=== PATIENT | female | born 2000 | race Caucasian/White ===

== ENCOUNTER 2021-01-29 12:01 | Inpatient (IN) ==
[2021-01-29] MEDS ORDERED: Buffered Lidocaine 1% SYRIN 1 ml INTRADERM ONE (12:53)
[2021-01-29] MEDS ORDERED: Lactated Ringers 1000 ml BAG 1,000 ML IV ONE ×2 (12:53→17:09)
[2021-01-29] MEDS ORDERED: Lactated Ringers 1000 ml BAG 1,000 ML IV SCH ×3 (13:00→22:00)
[2021-01-29] MEDS ORDERED: Oxytocin in LR 20 UNITS/1,000 ML BAG IVPB SCH ×2 (13:00→22:00)
[2021-01-29 13:37] LABS: ABS Eosinophils 0.1 10^3/ul (0-0.6); ABS Lymphocytes 1.9 10^3/ul (1.0-4.8); ABS Neutrophils 7.2 10^3/ul (1.5-7.7); Eosinophil % 0.5 %; Hematocrit 38 % (35-47); Lymphocyte % 18.8 %; Mean Corpuscular HGB Conc 34 g/dL (31-36); Mean Corpuscular Hemoglobin 29 pg (27-31); Mean Corpuscular Volume 86 fL (80-97); Platelet Count 217 10^3/uL (150-450); Red Blood Count 4.45 10^6 /uL (3.70-4.87); Red Cell Distribution Width 14 % (10-15); White Blood Count 10.1 10^3/uL (3.5-10.8)
[2021-01-29 14:04] LABS: Urine Benzodiazepine Screen None Detected (None Detect); Urine Cannabinoids Screen None Detected (None Detect); Urine Opiates Screen None Detected (None Detect)
[2021-01-29] MEDS ORDERED: OBEPIDURAL 250 ML EPIDURAL ONE (16:23)
[2021-01-29] MEDS ORDERED: EPHEDrine (Pressors) 50 MG/ML VIAL IV PUSH PRN ×2 (17:09)
[2021-01-29] MEDS ORDERED: Sodium Citrate/Citric Acid LIQ 15 ML UDC PO PRN (17:09)
[2021-01-29] MEDS ORDERED: Phenylephrine 40 mcg/mL 10mL (400mcg) SYRINGE IV PUSH PRN ×2 (17:09)
[2021-01-29] MEDS ORDERED: OBEPIDURAL 250 ML EPIDURAL SCH (18:00)
[2021-01-29 18:07] LABS: Urine Appearance Clear; Urine Bilirubin Negative (Negative); Urine Blood Negative (Negative); Urine Color Straw; Urine Glucose Negative (Negative); Urine Ketones Negative (Negative); Urine Nitrite Negative (Negative); Urine Protein Negative (Negative); Urine Specific Gravity 1.008 (1.002-1.030); Urine Urobilinogen Negative (Negative)
[2021-01-29] MEDS ORDERED: Ondansetron 4 mg VIAL 2 MG/ML 2 ml VIAL IV PRN (19:16)
[2021-01-29] MEDS ORDERED: Witch Hazel PAD JAR TOPICAL PRN (21:31)
[2021-01-29] MEDS ORDERED: Dibucaine 1% OINT 28.35 GM TUBE PR PRN (21:31)
[2021-01-29] MEDS ORDERED: Metoclopramide 5 MG/ML VIAL (10 mg) IV ONE (22:47)
[2021-01-29] MEDS ORDERED: Ammonia Inhalant 1 EA AMP ONE (23:27)
[2021-01-30] MEDS ORDERED: Lidocaine 1% VIAL 10 MG/ML VIAL ONE (01:06)
[2021-01-30 08:07] LABS: ABS Basophils 0.1 10^3/ul (0-0.2); ABS Lymphocytes 2.2 10^3/ul (1.0-4.8); ABS Monocytes 1.5 10^3/ul (0-0.8); ABS Neutrophils 10.4 10^3/ul (1.5-7.7); Eosinophil % 0.3 %; Hematocrit 35 % (35-47); Hemoglobin 11.9 g/dL (12.0-16.0); Lymphocyte % 15.2 %; Mean Corpuscular HGB Conc 34 g/dL (31-36); Mean Corpuscular Hemoglobin 29 pg (27-31); Mean Corpuscular Volume 85 fL (80-97); Mean Platelet Volume 8.4 fL (7.4-10.4); Platelet Count 180 10^3/uL (150-450); Red Blood Count 4.08 10^6 /uL (3.70-4.87); Red Cell Distribution Width 13 % (10-15); White Blood Count 14.1 10^3/uL (3.5-10.8)
[2021-01-31 07:57] VITALS: BP 92/58
== END 2021-01-31 12:55 | disposition home or self-care (01) | DRG 560 ==
LOC: MCHOBOUT 12:01 → MCHOB 12:56
PROVIDERS: ADMIT Midwife; ATTEND Midwife